=== PATIENT | male | born 1955 | race Caucasian/White ===

== ENCOUNTER 2018-01-07 08:48 | Emergency (ER) | payer OTHER, MEDICARE ==
[~2018-01-07] VITALS: Ht 182.9 cm; Wt 88.9 kg
[2018-01-07] MEDS ORDERED: ATORVASTATIN CA10 M1 PO (09:15)
[2018-01-07] MEDS ORDERED: FIBER LAX625 MG PO (09:16)
[2018-01-07] MEDS ORDERED: CLONAZEPAM2 M2 PO (09:16)
[2018-01-07] MEDS ORDERED: MIDODRINE HCL5 M1 PO (09:17)
[2018-01-07] MEDS ORDERED: FINASTERIDE5 M1 PO (09:17)
[2018-01-07] MEDS ORDERED: DAILY MULTIPLE1 EACH PO (09:17)
[2018-01-07] MEDS ORDERED: OLANZAPINE5 M2 PO (09:18)
[2018-01-07] MEDS ORDERED: RANITIDINE HCL150 M2 PO (09:19)
[2018-01-07] MEDS ORDERED: PAXIL40 M1 PO (09:19)
[2018-01-07] MEDS ORDERED: SENNA PLUS TAB1 EACH PO (09:19)
[2018-01-07] MEDS ORDERED: TAMSULOSIN HCL0.4 M1 PO (09:20)
--- NOTE | 2018-01-07 09:58 | ED UPPER/LOWER EXTREMITY COMPL ---
History of Present Illness General Chief Complaint: Lower Extremity Problems Stated Complaint: LEFT HIP SWELLING Source: Artistic Associate Exam Limitations: Non-verbal, intillectual deficit Vital Signs & Intake/Output Vital Signs & Intake/Output Vital Signs Date Time Temp Pulse Resp B/P B/P Pulse O2 O2 Flow FiO2 Mean Ox Delivery Rate 01/07 1015 97.0 80 20 128/70 96 Room Air 01/07 0852 96.4 77 18 132/78 95 Room Air ED Intake and Output 01/08 0000 01/07 1200 Intake Total Output Total Balance Patient 196 lb Weight Weight Estimated Measurement Method Allergies Coded Allergies: aspirin (UNKNOWN 01/07/18) pork derived (porcine) (UNKNOWN 01/07/18) salicylates (UNKNOWN 01/07/18) Uncoded Allergies: LIVER (UNKNOWN REACTION TO GIRALDO 01/07/18) PUREX LAUNDRY SOAP (UNKNOWN 05/07/11) Reconcile Medications Atorvastatin Calcium 10 MG TABLET 1 TAB PO DAILY CHOLESTEROL (Reported) Calcium Polycarbophil (Fiber Lax) 625 MG TABLET 1 CAP PO DAILY GI (Reported) Clonazepam 2 MG TABLET 1 TAB PO 4 TIMES/DAY UNKNOWN (Reported) Finasteride 5 MG TABLET 1 TAB PO DAILY PROSTATE (Reported) Midodrine HCl 5 MG TABLET 1 TAB PO TID UNKNOWN (Reported) Multivitamin (Daily Multiple Vitamin) 1 EACH TABLET 1 TAB PO DAILY VITAMIN SUPPORT (Reported) Olanzapine 5 MG TABLET 1 TAB PO QPM MENTAL HEALTH (Reported) Paroxetine HCl (Paxil) 40 MG TABLET 2 TAB PO DAILY MENTAL HEALTH (Reported) Ranitidine HCl 150 MG CAPSULE 1 CAP PO BID GI (Reported) Sennosides/Docusate Sodium (Senna Plus Tablet) 8.6 MG-50 MG TABLET 1 TAB PO QPM GI (Reported) Tamsulosin HCl 0.4 MG CAP.ER.24H 1 CAP PO DAILY MENTAL HEALTH (Reported) Triage Note: 62 Y/O [place] [facility] ? L HIP PAIN AND SWELLING. PER EMS, [facility] STAFF CONTACTED EMS "BECAUSE THEY CHANGED HIM AND NOTICED SWELLING TO HIS LEFT HIP AND L LEG SHORTENING". UPON EMS ARRIVAL, "HE (PT) JUMPED UP AND WALKED TO OUR STRETCHER". ARRIVES TO ED ALERT AND NONVERBAL (BASELINE NON VERBAL, HX AUTISM). ABLE TO MOVE OVER TO HOSPITAL STRETCHER WITHOUT DIFFICULTY OF SIGNS OF PAIN NOTED. NO SHORTENING TO EITHER LEG. MOVING BILATERAL LOWER EXTREMITIES INDEPENDENTLY. DISTAL CMS INTACT. RED STUDENT INTO EVAL Triage Nurses Notes Reviewed? yes Onset: Abrupt Duration: hour(s):, constant HPI: Pt is a 62 y/o M PMHx non-verbal, intellectual deficiency presenting with abnormal gait noticed by caretakers this morning. History obtained from shop clerk. Pt lives [facility] and was noticed to have an abnormal gait this morning. shop clerk states he was walking strange on his left side with a limp. And a slight shuffle. No falls were reported by the night staff or anyone in the recent past. Pt was not observed to expess any signs of pain. Pt willingly stands and walks without difficulty. Swelling was noted to the patient's left hip. There's been no falls or trauma. (Lucien Hartman) Past History Travel History Traveled to [place] past 21 day No Medical History Any Pertinent Medical History? see below for history Neurological: AUTISM - NONVERBAL AT BASELINE EENT: NONE Cardiovascular: ORTHOSTATIC HYPOTENSION Respiratory: NONE Gastrointestinal: GASTRITIS CONSTIPATION Hepatic: NONE Renal: URINARY INCONTINENCE Musculoskeletal: NONE Psychiatric: anxiety, ADHD Endocrine: HYPOGLYCEMIA Blood Disorders: NONE Cancer(s): NONE WAFER CLEANER/Reproductive: NONE Surgical History Surgical History: unobtainable Psychosocial History What is your primary language Polish Tobacco Use: Never used Family History Hx Contributory? No (Lucien Hartman) Review of Systems Review of Systems Constitutional: Denies: see HPI. EENTM: Reports: no symptoms. Respiratory: Reports: no symptoms. Cardiovascular: Reports: no symptoms. Gastrointestinal/Abdominal: Reports: no symptoms. Genitourinary: Reports: no symptoms. Musculoskeletal: Reports: see HPI. Skin: Reports: no symptoms. Neurological/Psychological: Reports: no symptoms. Hematologic/Endocrine: Reports: no symptoms. Immunological: Reports: no symptoms. All Other Systems: Reviewed and Negative (Lucien Hartman) Physical Exam Physical Exam General Appearance: well developed/nourished, no apparent distress, alert, awake Head: atraumatic, normal appearance Eyes: Bilateral: normal appearance, PERRL. Ears, Nose, Throat: normal ENT inspection, hearing grossly normal Neck: normal inspection, full range of motion Cardiovascular/Respiratory: normal breath sounds, normal peripheral pulses, regular rate/rhythm, no respiratory distress Peripheral Pulses: 2+ radial (R), 2+ radial (L), 2+ dorsalis pedis (R), 2+ dorsalis pedis (L) Gastrointestinal: Normal bowel sounds present. soft, non-tender to palpation. No organomegaly Back: normal inspection, normal range of motion, no vertebral tenderness Leg Left: normal range of motion, normal inspection, surgical scar noted to left lateral hip. No swelling or erythema. No pain on palpation of bilateral LE, No shortening or external rotation noted on inspection of supine pt Leg Right: normal range of motion, normal inspection Hip Left: normal range of motion, normal inspection, no erythema, no warmth, some mild swelling to the left greater trochanteric region Hip Right: normal range of motion, normal inspection Neurologic/Tendon: Pt walks without hesitation. External rotation of left foot noticed upon gait. Skin: intact, normal color, warm/dry (Marco Antonio MOON,Lucien) Progress Differential Diagnosis: contusion, dislocation, fracture, sprain, tendon injury, BURSITIS Plan of Care: Orders Procedure Date/time Status XRY-AP PELVIS 01/08 912 Active XRY-HIP 2-3 VIEWS, LEFT 01/08 912 Active Diagnostic Imaging: Viewed by Me: Radiology Read. Discussed w/RAD: Radiology Read. Radiology Impression: PATIENT: DAVE SEAY PRESENT AGE: 62 PATIENT ACCOUNT NO: [id number] : 53 LOCATION: [facility] ORDERING PHYSICIAN: Lucien MOON SERVICE DATE: 01/07/18 EXAM TYPE: RAD - XRY-AP PELVIS; XRY-HIP 2-3 VIEWS, LEFT EXAMINATION: XR PELVIS XR HIP, LEFT CLINICAL INFORMATION: Left hip pain. COMPARISON: None TECHNIQUE: Pelvis, AP view Left hip, 2 views FINDINGS: Pelvis: Pelvic bones have normal alignment. No fracture or subluxation. The joint space at each hip is maintained. Left hip: The femoral head is well-positioned within the intact acetabulum. Minimal osteophyte formation at the femoral head-neck junction. No acute femoral fracture or avascular necrosis. Apparent old, healed fracture through the subtrochanteric region of the proximal femur with intact fixation hardware in place. Soft tissues of the hip are grossly unremarkable. IMPRESSION: - No acute osseous injury in the pelvis or proximal femurs. - Minimal osteoarthrosis of the left hip. - No evidence of loosening of the femoral fixation hardware. DICTATED BY: Tam Armenta MD DATE/TIME DICTATED:01/07/18952 COMMERCIAL ESCROW OFFICER: SAIDA DATE/TIME TRANSCRIBED:01/07/18952 CONFIDENTIAL, DO NOT COPY WITHOUT APPROPRIATE AUTHORIZATION. <Electronically signed in Other Vendor System> SIGNED BY: Tam Armenta MD 01/07/18 1002 (Lucien Hartman) Departure Departure Disposition: HOME OR SELF CARE Condition: Stable Clinical Impression Primary Impression: Hip bursitis, left Referrals: Elisabeth Silva APRN (PCP/Family) Kimmy Wilson MD Additional Instructions: Ice. Tylenol extra strength for pain. Follow-up with orthopedic doctor provided. Return if any concerns worsening symptoms. Please go over all results of today's visit with your primary care doctor. Contact your primary care doctor to let them know you were here in the emergency room. There may be nonspecific findings which may not be related to your visit today here in the emergency room but may require further evaluation and chronic monitoring by your primary care doctor. If you had a laceration today the chance of foreign body always remains. You should follow-up with your primary care doctor for recheck in 3-5 days for a wound check. If you had an x-ray done there is a chance that a fracture could have been missed on initial read and you should follow-up with your primary care doctor for repeat x-rays if symptoms persist. If your blood pressure was elevated here in the emergency room please have rechecked by [facility] primary care doctor within the next 48. If you were prescribed a narcotic here in the emergency room or any type of controlled substances you're not allowed to drive while taking this medication or operate any type of heavy machinery. Narcotics can make you feel lightheaded dizziness nausea and can cause constipation. You may need to mixing picker tender a stool softener. Thank you for choosing [facility] emergency room. Please return to the emergency room immediately if you have any other concerns worsening of symptoms. Departure Forms: Customer Survey General Discharge Information Comments 01/07/2018 12:29:44 PM Patient clinically looks well. In no apparent distress. Nontoxic-appearing. No clinical evidence of any trauma. Patient is able to ambulate with no difficulty. He does not appear to be any type of pain. Could be a bursitis of the hip. Patient treated symptomatically and referred orthopedic doctor. (Lucien Hartman) PA/BUSINESS EDUCATION PROFESSOR Co-Sign Statement Statement: ED Attending supervision documentation- I saw and evaluated the patient. I have also reviewed all the pertinent lab results and diagnostic results. I agree with the findings and the plan of care as documented in the PA's/BUSINESS EDUCATION PROFESSOR's documentation. x I have reviewed the ED Record and agree with the PA's/BUSINESS EDUCATION PROFESSOR's documentation. [] Additions or exceptions (if any) to the PAs/BUSINESS EDUCATION PROFESSOR's note and plan are summarized below: [] (Luis Fernando SALAZAR,Yoav)
--- NOTE | 2018-01-07 10:02 | RADIOLOGY REPORT ---
EXAMINATION: XR PELVIS XR HIP, LEFT CLINICAL INFORMATION: Left hip pain. COMPARISON: None TECHNIQUE: Pelvis, AP view Left hip, 2 views FINDINGS: Pelvis: Pelvic bones have normal alignment. No fracture or subluxation. The joint space at each hip is maintained. Left hip: The femoral head is well-positioned within the intact acetabulum. Minimal osteophyte formation at the femoral head-neck junction. No acute femoral fracture or avascular necrosis. Apparent old, healed fracture through the subtrochanteric region of the proximal femur with intact fixation hardware in place. Soft tissues of the hip are grossly unremarkable. IMPRESSION: - No acute osseous injury in the pelvis or proximal femurs. - Minimal osteoarthrosis of the left hip. - No evidence of loosening of the femoral fixation hardware.
[2018-01-07 10:15] VITALS: BP 128/70
== END 2018-01-07 10:29 ==
LOC: ERH 08:48
DX: M70.72 Other bursitis of hip, left hip (principal)
CPT/HCPCS: 72170; 73502-LT